=== PATIENT | male | born 1960 | race Caucasian/White ===

== ENCOUNTER → 2020-06-14 | Outpatient (CLI) | payer MEDICARE, OTHER | LOC: HEART 5 08:00 | DX: R06.02 Shortness of breath (principal); I50.30 Unspecified diastolic (congestive) heart failure; I42.2 Other hypertrophic cardiomyopathy | CPT/HCPCS: 93306 ==

== ENCOUNTER → 2020-07-03 | Outpatient (CLI) | payer MEDICARE, OTHER | LOC: HEART 5 15:00 | DX: R00.2 Palpitations (principal) ==

== ENCOUNTER → 2021-11-01 | Outpatient (CLI) | payer MEDICARE, OTHER | LOC: KOH-I 13:45 | DX: M79.672 Pain in left foot (principal); M79.671 Pain in right foot; M77.9 Enthesopathy, unspecified | CPT/HCPCS: 73630 ==